=== PATIENT | male | born 1945 ===

== ENCOUNTER → 2021-02-14 | Outpatient (CLI) | payer OTHER, MEDICARE | LOC: RAD 09:57 | PROVIDERS: ATTEND Family Medicine | DX: M47.812 Spondylosis without myelopathy or radiculopathy, cervical region (principal) ==

== ENCOUNTER → 2021-08-18 | Outpatient (CLI) | payer OTHER, MEDICARE | LOC: RAD 12:37 | PROVIDERS: ATTEND Nurse Practitioner | DX: R06.02 Shortness of breath (principal); R06.00 Dyspnea, unspecified ==